=== PATIENT | female | born 1975 | race American Indian/Alaskan Native ===

== ENCOUNTER 2017-11-10 14:01 | Outpatient (CLI) | payer OTHER ==
--- NOTE | 2017-11-21 14:14 | XRay Report ---
FINAL REPORT PROCEDURE: Lumbar spine. TECHNIQUE: Five views. HISTORY: LUMBAGO WITH SCIATICA,LEFT SIDE . COMPARISON: No prior studies are available for comparison. FINDINGS: The lumbar vertebrae have normal height and alignment. There are no fractures. There is no spondylolysis. There is no spondylolisthesis. The disc spaces are well maintained. The sacrum and sacroiliac joints are unremarkable. IMPRESSION: Normal study.
== END 2017-11-10 14:02 | disposition home or self-care (01) ==
LOC: XRAY 14:01
PROVIDERS: ATTEND Internal Medicine
DX: Z02.71 Encounter for disability determination (principal); M54.42 Lumbago with sciatica, left side
CPT/HCPCS: 72110